=== PATIENT | male | born 1965 | race Caucasian/White ===

== ENCOUNTER → 2016-07-21 | Outpatient (REF) | payer OTHER ==
[~2016-07-21] MED LIST: BENZ5TA PO; DEPA500T2 PO; LAMO10TA PO; NO HOME MEDICATIONS; RISP1TAB3 PO; TRAZO50TA PO
== END ==
LOC: M SFHCPLAZ 15:11
PROVIDERS: ATTEND Family Medicine
DX: E78.5 Hyperlipidemia, unspecified (principal); F31.60 Bipolar disorder, current episode mixed, unspecified

== ENCOUNTER → 2016-12-02 | Outpatient (REF) | payer OTHER, SELFPAY, BC ==
[2016-12-02 20:02] LABS: BASO # 0.1 K/mm3 (0.0-0.2); BASO % 0.7 % (0.0-1.0); EOS # 0.1 K/mm3 (0.0-0.50); EOS % 1.3 % (0.0-3.0); LARGE UNSTAINED CELL # 0.2 K/mm3 (0.0-0.4); LARGE UNSTAINED CELL % 1.9 % (0.0-4.0); LYMPH # 2.1 K/mm3 (1.5-4.5); LYMPH % 21.5 % (24.0-44.0); MEAN CORPUSCULAR HGB CONC 34.3 g/dl (32.0-36.5); MONO # 0.6 K/mm3 (0.0-0.8); MONO % 5.9 % (0.0-5.0); NEUTROPHILS # 6.6 K/mm3 (1.8-7.7); NEUTROPHILS % 68.7 % (36.0-66.0); PLATELET COUNT, AUTOMATED 207 k/mm3 (150-450); RED CELL DISTRIBUTION WIDTH 12.5 % (11.5-14.5); WHITE BLOOD COUNT 9.5 K/mm3 (4.0-10.0)
[2016-12-02 20:04] LABS: ALBUMIN 4.2 GM/DL (3.2-5.2); ALBUMIN/GLOBULIN RATIO 1.31 (1.00-1.93); ALKALINE PHOSPHATASE 90 U/L (45-117); ALT/SGPT 38 U/L (12-78); ANION GAP 7 MEQ/L (8-16); AST/SGOT 20 U/L (15-37); BILIRUBIN,TOTAL 0.5 MG/DL (0.2-1.0); BLOOD UREA NITROGEN 12 MG/DL (7-18); CALCIUM LEVEL 9.2 MG/DL (8.5-10.1); CARBON DIOXIDE LEVEL 27 MEQ/L (21-32); CHLORIDE LEVEL 105 MEQ/L (98-107); CREATININE FOR GFR 0.72 MG/DL (0.70-1.30); GLOMERULAR FILTRATION RATE > 60.0 (>56); GLUCOSE, FASTING 79 MG/DL (70-105); POTASSIUM SERUM 4.4 MEQ/L (3.5-5.1); SODIUM LEVEL 139 MEQ/L (136-145); TOTAL PROTEIN 7.4 GM/DL (6.4-8.2)
[2016-12-02 20:11] LABS: FOLATE 22.3 NG/ML; VITAMIN B12 LEVEL 644 PG/ML
[2016-12-02 21:04] LABS: ERYTHROCYTE SEDIMENTATION RATE 2 mm/hr (0-20)
[2016-12-03 06:19] LABS: ALBUMIN 4.79 GM/DL (3.29-5.55); ALBUMIN % 64.7 % (55.8-66.1); GAMMA GLOBULIN % 11.3 % (11.1-18.8)
== END ==
LOC: M LAB REF 17:36
PROVIDERS: ATTEND Psychiatry & Neurology Neurology
DX: G31.84 Mild cognitive impairment of uncertain or unknown etiology (principal)

== ENCOUNTER → 2018-06-15 | Outpatient (REF) | payer BC ==
[2018-06-15 16:06] LABS: HEMATOCRIT 43.2 % (42.0-52.0); HEMOGLOBIN 14.6 g/dl (13.5-17.5); MEAN CORPUSCULAR HEMOGLOBIN 32.3 pg (27.0-33.0); MEAN CORPUSCULAR HGB CONC 33.8 g/dl (32.0-36.5); MEAN CORPUSCULAR VOLUME 95.6 fl (80.0-96.0); PLATELET COUNT, AUTOMATED 232 10^3/uL (150-450); RED BLOOD COUNT 4.52 10^6/uL (4.30-6.10); WHITE BLOOD COUNT 7.5 10^3/uL (4.0-10.0)
[2018-06-15 16:10] LABS: ALBUMIN 3.9 GM/DL (3.2-5.2); ALT/SGPT 21 U/L (12-78); BILIRUBIN,DIRECT < 0.1 MG/DL (0.0-0.2); BILIRUBIN,TOTAL 0.3 MG/DL (0.2-1.0); BLOOD UREA NITROGEN 13 MG/DL (7-18); CALCIUM LEVEL 9.4 MG/DL (8.5-10.1); CARBON DIOXIDE LEVEL 29 MEQ/L (21-32); CHLORIDE LEVEL 104 MEQ/L (98-107); CREATININE FOR GFR 0.71 MG/DL (0.70-1.30); GLOMERULAR FILTRATION RATE > 60.0 (>56); GLUCOSE, FASTING 85 MG/DL (70-100); SODIUM LEVEL 138 MEQ/L (136-145); TOTAL PROTEIN 7.1 GM/DL (6.4-8.2)
[2018-06-15 16:19] LABS: HEMOGLOBIN A1c 5.4 %
== END ==
LOC: M LABDRAW1 10:45 → M SFHCPLAZ 10:45
PROVIDERS: ATTEND Family Medicine
DX: F31.9 Bipolar disorder, unspecified (principal); R73.03 Prediabetes; Z12.5 Encounter for screening for malignant neoplasm of prostate; Z12.11 Encounter for screening for malignant neoplasm of colon
CPT/HCPCS: 36415; 80053; 80164; 80175; 82248; 83036; 85027; G0103

== ENCOUNTER → 2019-12-26 | Outpatient (REF) | payer BC ==
[~2019-12-26] MED LIST changes: +LAMO100T80 PO; -LAMO10TA PO; +TRAZ1TAB10 PO; -TRAZO50TA PO
== END ==
LOC: M SFHCPLAZ 11:03
PROVIDERS: ATTEND Family Medicine
DX: Z53.9 Procedure and treatment not carried out, unspecified reason (principal); F31.9 Bipolar disorder, unspecified

== ENCOUNTER → 2021-12-02 | Outpatient (REF) | payer BC | LOC: M SFHCPLAZ 09:58 | PROVIDERS: ATTEND Family Medicine | DX: F31.9 Bipolar disorder, unspecified (principal); E78.5 Hyperlipidemia, unspecified; Z13.0 Encounter for screening for diseases of the blood and blood-forming organs and certain disorders involving the immune mechanism; Z53.9 Procedure and treatment not carried out, unspecified reason ==

== ENCOUNTER → 2022-01-16 | Outpatient (REF) | payer BC | LOC: M SFHCPLAZ 10:51 | PROVIDERS: ATTEND Family Medicine | DX: R63.4 Abnormal weight loss (principal); Z13.1 Encounter for screening for diabetes mellitus; F31.9 Bipolar disorder, unspecified; Z53.9 Procedure and treatment not carried out, unspecified reason ==

== ENCOUNTER → 2023-01-06 | Outpatient (CLI) | payer BC ==
[2023-01-06 14:06] LABS: HEMATOCRIT 43.6 % (42.0-52.0); HEMOGLOBIN 14.5 g/dl (13.5-17.5); MEAN CORPUSCULAR HEMOGLOBIN 32.3 pg (27.0-33.0); MEAN CORPUSCULAR HGB CONC 33.3 g/dl (32.0-36.5); MEAN CORPUSCULAR VOLUME 97.1 fl (80.0-96.0); PLATELET COUNT, AUTOMATED 208 10^3/uL (150-450); RED BLOOD COUNT 4.49 10^6/uL (4.30-6.10); WHITE BLOOD COUNT 6.7 10^3/uL (4.0-10.0)
[2023-01-06 14:27] LABS: HEMOGLOBIN A1c 5.2 % (4.0-6.0)
[2023-01-06 14:33] LABS: VALPROIC ACID (DEPAKOTE) 70.4 UG/ML (50.0-100.0)
[2023-01-06 14:35] LABS: FREE T4 1.17 NG/DL (0.89-1.76)
[2023-01-06 14:36] LABS: FREE THYROXINE INDEX 3.4 % (1.4-3.8); T UPTAKE 33.4 % (22.5-37.0); THYROID STIMULATING HORMONE 2.528 uIU/ML (0.55-4.78); THYROXINE (T4) 10.2 UG/DL (4.5-10.9)
== END ==
LOC: M PLALAB 11:21
PROVIDERS: ATTEND Student in an Organized Health Care Education/Training Program
DX: R63.4 Abnormal weight loss (principal); F31.9 Bipolar disorder, unspecified

== ENCOUNTER 2023-07-10 06:55 | Emergency (ER) | payer BC ==
[~2023-07-10] VITALS: Ht 180.3 cm; Wt 71.5 kg
[2023-07-10 06:57] VITALS: BP 133/74; TEMP 98.1; O2SAT 98
[2023-07-10] MEDS ORDERED: TETRACAINE 0.5% OPHTH SOLN 4ML OD ONE (07:15)
[2023-07-10] MEDS ORDERED: FLUORESCEIN OPHTH 1MG STRIP OD ONE (07:15)
[2023-07-10] MEDS ORDERED: TETR15DR2 OP (08:10)
[2023-07-10] MEDS ORDERED: IBUP-1022 PO (08:10)
[2023-07-10] MEDS ORDERED: ERYT5OIN25 OD (08:10)
== END 2023-07-10 08:36 | disposition home or self-care (01) ==
LOC: M ED 06:55
DX: S05.01XA Injury of conjunctiva and corneal abrasion without foreign body, right eye, initial encounter (principal); F41.9 Anxiety disorder, unspecified; F31.9 Bipolar disorder, unspecified; F17.200 Nicotine dependence, unspecified, uncomplicated; Z79.899 Other long term (current) drug therapy; Z79.2 Long term (current) use of antibiotics

== ENCOUNTER 2023-12-06 19:09 | Emergency (ER) | payer BC ==
[~2023-12-06] VITALS: Ht 180.3 cm; Wt 71.5 kg
[2023-12-06 19:10] VITALS: BP 132/77; TEMP 96.7; O2SAT 97
== END 2023-12-07 | disposition left against medical advice (07) ==
LOC: M ED 19:09
DX: Z53.21 Procedure and treatment not carried out due to patient leaving prior to being seen by health care provider (principal)

== ENCOUNTER → 2023-12-06 | Outpatient (REF) | payer BC ==
[~2023-12-06] MED LIST changes: +ERYT5OIN25 OD; +IBUP-1022 PO; +TETR15DR2 OP
== END ==
LOC: M LAB REF 20:03
PROVIDERS: ATTEND Student in an Organized Health Care Education/Training Program
DX: R21 Rash and other nonspecific skin eruption (principal)

== ENCOUNTER 2023-12-07 13:26 | Emergency (ER) | payer BC ==
[~2023-12-07] VITALS: Ht 180.3 cm; Wt 70.9 kg
[2023-12-07 17:50] VITALS: BP 128/76; TEMP 96.7; O2SAT 100
[2023-12-07 19:54] LABS: BASO # 0.1 10^3/uL (0.0-0.2); BASO % 0.9 % (0.0-1.0); EOS # 0.3 10^3/uL (0.0-0.5); EOS % 4.2 % (0.0-3.0); HEMATOCRIT 40.4 % (42.0-52.0); HEMOGLOBIN 13.9 g/dl (13.5-17.5); LYMPH % 29.5 % (24.0-44.0); MEAN CORPUSCULAR HEMOGLOBIN 32.4 pg (27.0-33.0); MEAN CORPUSCULAR HGB CONC 34.4 g/dl (32.0-36.5); MEAN CORPUSCULAR VOLUME 94.2 fl (80.0-96.0); MONO # 0.4 10^3/uL (0.0-0.8); MONO % 6.6 % (2.0-8.0); NEUTROPHILS # 3.9 10^3/uL (1.5-8.5); NEUTROPHILS % 58.3 % (36.0-66.0); PLATELET COUNT, AUTOMATED 215 10^3/uL (150-450); RED BLOOD COUNT 4.29 10^6/uL (4.30-6.10); WHITE BLOOD COUNT 6.6 10^3/uL (4.0-10.0)
[2023-12-07 19:59] LABS: ERYTHROCYTE SEDIMENTATION RATE 43 mm/hr (0-20)
[2023-12-07 20:04] LABS: INR 1.01; PARTIAL THROMBOPLASTIN TIME 28.3 SECONDS (24.8-34.2)
[2023-12-07 20:23] LABS: ALBUMIN 3.3 G/DL (3.2-5.2); ALKALINE PHOSPHATASE 88 U/L (46-116); ALT/SGPT 25 U/L (7.0-40); AST/SGOT 18 U/L (<34); BILIRUBIN,DIRECT 0.1 MG/DL (<0.4); BILIRUBIN,TOTAL 0.4 MG/DL (0.3-1.2); BLOOD UREA NITROGEN 11 MG/DL (9-23); CALCIUM LEVEL 9.4 MG/DL (8.5-10.1); CARBON DIOXIDE LEVEL 28 MMOL/L (20-31); CHLORIDE LEVEL 106 MMOL/L (98-107); CREATININE FOR GFR 0.57 MG/DL (0.70-1.30); GLOMERULAR FILTRATION RATE > 60.0 (>56); GLUCOSE, FASTING 74 MG/DL (60-100); POTASSIUM SERUM 4.2 MMOL/L (3.5-5.1); SODIUM LEVEL 138 MMOL/L (136-145); TOTAL PROTEIN 7.3 G/DL (5.7-8.2)
== END 2023-12-07 20:03 | disposition left against medical advice (07) ==
LOC: M ED 13:26
DX: R23.4 Changes in skin texture (principal); Z53.9 Procedure and treatment not carried out, unspecified reason; F31.9 Bipolar disorder, unspecified; F17.200 Nicotine dependence, unspecified, uncomplicated; Z79.899 Other long term (current) drug therapy

== ENCOUNTER 2025-03-24 14:44 | Emergency (ER) | payer BC, OTHER ==
[~2025-03-24] VITALS: Ht 180.3 cm; Wt 69.5 kg
[~2025-03-24 14:44] MED LIST changes: +DIVA500T9 PO; -IBUP-1022 PO; +IBUP600T42 PO; +LAMO200T3 PO; +PERCOCET PO; +TETR15DR16 OP; -TETR15DR2 OP
[2025-03-24 15:14] VITALS: TEMP 97.4
[2025-03-24] MEDS: IBUPROFEN 600 MG TAB PO ONE (15:40)
[2025-03-24] MEDS ORDERED: IBUP600T42 PO (17:29)
[2025-03-24 17:44] VITALS: BP 129/65; O2SAT 96
== END 2025-03-24 17:51 | disposition home or self-care (01) ==
LOC: M ED 14:44
DX: S46.211A Strain of muscle, fascia and tendon of other parts of biceps, right arm, initial encounter (principal); S29.011A Strain of muscle and tendon of front wall of thorax, initial encounter; X58.XXXA Exposure to other specified factors, initial encounter; Y92.9 Unspecified place or not applicable; Y93.9 Activity, unspecified; Y99.0 Civilian activity done for income or pay; F31.9 Bipolar disorder, unspecified; E78.5 Hyperlipidemia, unspecified; F17.200 Nicotine dependence, unspecified, uncomplicated; Z79.899 Other long term (current) drug therapy

== ENCOUNTER → 2025-05-08 | Outpatient (REF) | payer OTHER | LOC: M SFHCPLAZ 23:51 | PROVIDERS: ATTEND Family Medicine | DX: Z53.9 Procedure and treatment not carried out, unspecified reason (principal) ==